=== PATIENT | female | born 1970 | race Caucasian/White ===

== ENCOUNTER 2017-08-19 23:52 | Emergency (ER) | payer OTHER, BC ==
[2017-08-20] MEDS: HYDROCODONE/APAP (5/325) TAB PO (00:34)
== END 2017-08-20 01:40 | disposition home or self-care (01) ==
LOC: E/R 23:52
DX: S92.355A Nondisplaced fracture of fifth metatarsal bone, left foot, initial encounter for closed fracture (principal); I10 Essential (primary) hypertension; E03.9 Hypothyroidism, unspecified; X58.XXXA Exposure to other specified factors, initial encounter; Y92.9 Unspecified place or not applicable
CPT/HCPCS: 29515; 73610; 99283-25